=== PATIENT | male | born 1975 | race American Indian/Alaskan Native ===

== ENCOUNTER 2017-03-02 01:29 | Inpatient (IN) | payer MEDICAID, OTHER ==
[2017-03-02 01:29] VITALS: BMI 41.1
[2017-03-02 02:12] LABS: BASO # 0.1 K/uL (0.0-0.2); BASO % 0.8 % (0.0-2.0); EOS # 0.5 K/uL (0.0-0.7); EOS % 4.2 % (0.0-4.0); HEMATOCRIT 45.7 % (35.0-51.0); LYMPH # 4.4 K/uL (1.0-4.3); LYMPH % 35.6 % (20.0-40.0); MEAN CELL VOLUME 93.8 fL (80.0-94.0); MEAN CORPUSCULAR HGB CONC 33.1 g/dL (33.0-37.0); MEAN PLATELET VOLUME 7.7 fL (7.2-11.7); MONO # 0.9 K/uL (0.0-0.8); MONO % 7.5 % (0.0-10.0); NRBC % 0.1 % (0.0-2.0); RED CELL DISTRIBUTION WIDTH 12.8 % (11.5-14.5); WHITE BLOOD COUNT 12.5 K/uL (4.8-10.8)
[2017-03-02 02:28] LABS: ALB/GLOB RATIO 1.2 (1.0-2.1); ALCOHOL SERUM < 10 mg/dl (0-10); ALKALINE PHOSPHATASE 78 U/L (38-126); ALT/SGPT 39 U/L (21-72); AST/SGOT 19 U/L (17-59); BILIRUBIN,TOTAL 0.4 mg/dL (0.2-1.3); BLOOD UREA NITROGEN 9 mg/dL (9-20); CALCIUM 10.8 mg/dl (8.6-10.4); CARBON DIOXIDE 27 mmol/L (22-30); CHLORIDE 100 mmol/L (98-107); GFR AFRICAN-AMERICAN > 60; GLUCOSE,RANDOM 103 mg/dL (75-110); POTASSIUM 3.8 mmol/L (3.6-5.2); SODIUM 144 mmol/L (132-148); TOTAL PROTEIN 7.3 g/dL (6.3-8.3)
[2017-03-02 02:44] LABS: RBC URINE 3 /hpf (0-3); URINE BILIRUBIN NEGATIVE (NEGATIVE); URINE BLOOD NEGATIVE (NEGATIVE); URINE COLOR Amber (YELLOW); URINE GLUCOSE (UA) NORMAL (Normal); URINE KETONE NEGATIVE (NEGATIVE); URINE LEUKOCYTE ESTERASE 1+ Leu/uL (Negative); URINE PROTEIN 1+ mg/dL (NEGATIVE); WBC URINE 5 /hpf (0-5)
--- NOTE | 2017-03-02 02:53 | C.PDOC ---
History Of Present Illness Pt is here requesting detox from Heroin. Time Seen by Provider: 03/02/17 01:46 Chief Complaint (Nursing): Substance Abuse History Per: Patient Onset/Duration Of Symptoms: Days Current Symptoms Are (Timing): Still Present Suicide/Self Injury Attempted (Context): None Modifying Factor(s): Narcotics, Cocaine Severity: Moderate Associated Symptoms: denies: Suicidal Thoughts, Suicidal Plan Additional History Per: Prior Records Past Medical History Reviewed: Historical Data, Nursing Documentation, Vital Signs Vital Signs: Last Vital Signs Temp 98.6 F 03/02/17 01:38 Pulse 78 03/02/17 01:38 Resp 14 03/02/17 01:38 BP 112/75 03/02/17 01:38 Pulse Ox 96 03/02/17 02:53 - Medical History PMH: Bronchitis Surgical History: No Surg Hx Family History: States: Unknown Family Hx - Social History Hx Tobacco Use: Yes Hx Alcohol Use: Yes (Social) Hx Substance Use: Yes (Snorts Heroin and Cocaine) - Immunization History Hx Tetanus Toxoid Vaccination: No Hx Influenza Vaccination: No Hx Pneumococcal Vaccination: No Review Of Systems Except As Marked, All Systems Reviewed And Found Negative. Constitutional: Negative for: Fever, Weakness Cardiovascular: Negative for: Chest Pain Respiratory: Negative for: Shortness of Breath Gastrointestinal: Negative for: Vomiting, Abdominal Pain Musculoskeletal: Negative for: Neck Pain Skin: Negative for: Rash Neurological: Negative for: Weakness, Numbness, Seizures Psych: Negative for: Psychosis Physical Exam - Physical Exam Appears: Non-toxic, No Acute Distress Skin: Normal Color, Warm, Dry, No Rash Head: Atraumatic, Normacephalic Eye(s): bilateral: Normal Inspection, PERRL, EOMI Neck: Normal ROM, Supple Cardiovascular: Rhythm Regular Respiratory: Normal Breath Sounds, No Accessory Muscle Use Gastrointestinal/Abdominal: Soft, No Tenderness Extremity: Normal ROM, No Deformity Neurological/Psych: Oriented x3, Normal Speech, Normal Cognition, Normal Motor, Normal Sensation ED Course And Treatment - Laboratory Results Result Diagrams: 03/02/17 02:07 03/02/17 02:07 Lab Interpretation: No Acute Changes O2 Sat by Pulse Oximetry: 96 Pulse Ox Interpretation: Normal Progress Note: Pt is medically stable for detox admission. Disposition Counseled Patient/Family Regarding: Studies Performed, Diagnosis, Smoking Cessation - Disposition Disposition: HOSPITALIZED Disposition Time: 02:54 Condition: STABLE - Clinical Impression Clinical Impression: Severe opioid use disorder, Cocaine abuse Decision To Admit - Pt Status Changed To: Hospital Disposition Of: Inpatient - Admit Certification Admit to Inpatient:: After my assessment, the patient will require hospitalization for at least two midnights. This is because of the severity of symptoms shown, intensity of services needed, and/or the medical risk in this patient being treated as an outpatient. - InPatient: Physician Admission Certification: I certify that this patient requires 2 or more midnights of care for the following reason:: Detox. - . Bed Request Type: Detox Admitting Physician: Brenda Torres Patient Diagnosis: Severe opioid use disorder, Cocaine abuse
[2017-03-02] MEDS ORDERED: Aluminum Hydroxide/Magnesium Hydroxide Susp (30 mL) PO PRN (10:45)
--- NOTE | 2017-03-02 13:25 | PCM.PSYCH ---
Initial Psychiatric Evaluation - Initial Psychiatric Evaluation Type of Admission: Voluntary Legal Status: Capacity Chief Complaint (in patient's own words): "Not well" History of Present Illness and Precipitating Events: The patient is seen, chart reviewed and case discussed. This is a 41-year-old -[place]rist[place] male, single with 1 son who is 18 years old. 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 The patient uses 10 backs intranasal heroin for the last 20 years. He states he relapsed about a year ago. This is his first detox and he has never been to rehabilitation but goes to [facility] sometimes. He also has not done methadone or Suboxone. He also admits to using cocaine on and off for the last 20 years, mostly by smoking. He denies alcohol but smokes 1 pack per day cigarettes and takes 6 mg Xanax a day, last use was about a week ago. He denies other drugs. He denies withdrawals or DTs. No psych symptoms elicited. Past psych history: Denies Medical history: There in shoulder and he is overweight. Current Medications: Active Medications Generic Name Dose Route Start Last Admin Trade Name Freq PRN Reason Stop Dose Admin Al Hydrox/Mg Hydrox/Simethicone 30 ml 03/02/17 10:45 Maalox 30 Ml PO TID PRN Indigestion / Heartburn Clonidine HCl 0.1 mg 03/02/17 10:45 Catapres PO Q8 PRN COWS Score More or Equal to 5 Diphenhydramine HCl 50 mg 03/02/17 04:33 03/02/17 04:50 Benadryl PO 50 mg Q8 PRN Administration Allergy symptoms Gabapentin 300 mg 03/02/17 14:00 Neurontin PO TID SONU Ibuprofen 600 mg 03/02/17 10:43 Motrin Tab PO Q6H PRN Pain, moderate (4-7) Loperamide HCl 2 mg 03/02/17 10:45 Imodium PO Q8 PRN Diarrhea Lorazepam 1 mg 03/02/17 04:33 03/02/17 04:50 Ativan PO 1 mg Q8H PRN Administration Severe anxiety Nicotine 1 patch 03/02/17 10:45 03/02/17 10:59 Nicoderm Cq TD 1 patch DAILY SONU Administration Ondansetron HCl 4 mg 03/02/17 10:45 Zofran Tab PO Q8 PRN Nausea/Vomiting Trazodone HCl 100 mg 03/02/17 10:43 Desyrel PO HS PRN Insomnia Past Psychiatric History - Past Psychiatric History Previous Treatment History: None Pertinent Medical Hx (Current Medical&Sleep Prob, Allergies): Allergies Allergy/AdvReac Type Severity Reaction Status Date / Time No Known Allergies Allergy Verified 03/02/17 01:42 Diazepam [Valium] 2 mg PO BID #6 tab 04/02/16 Ibuprofen [Motrin Tab] 600 mg PO Q6 #14 tab 04/02/16 traMADol [Ultram] 50 mg PO TID #6 tab 04/02/16 Review of Systems - Psychiatric Psychiatric: Abnormal Sleep Pattern, Anxiety, Irritability. absent: Depression , Hallucinations, Homicidal Ideation, Suicidal Ideation Mental Status Examination - Personal Presentation Personal Presentation: Looks stated age - Affect Affect: Constricted - Motor Activity Motor Activity: Calm - Reliability in Providing Information Reliability in Providing Information: Good - Speech Speech: Organized - Mood Mood: Anxious - Formal Thought Process Formal Thought Process: No Impairment - Cognitive Functions Orientation: Person, Place, Situation, Time Sensorium: Alert Attention/Concentration: Attentive Estimate of Intelligence: Average Judgement: Intact, as evidence by: Insight regarding need for hospitalization Memory: Recent intact, as evidence by: Ability to recall events of the day, Remote intact, as evidenced by: Abilit to recall sig. life events - Risk Risk: Withdrawal, Diminished functioning - Strength & Assets Inventory Strength & Assets Inventory: Cooperative - Limitations Limitations: Living alone, Other (unemployed) DSM 5 DX - DSM 5 DSM 5 Diagnosis: Opioid withdrawal Opioid use disorder, severe Cocaine use disorder, severe Sedative, hypnotic or anxiolytic use disorder, moderate Tobacco use disorder, severe - Recommended/Plan of Treatment Treatment Recommendations and Plan of Treatment: Opioids: Subutex detox As needed medications Gabapentin for augmentation Attend groups and activities Supportive therapy and psychoeducation [place] for abstinence CBT for relapse prevention Encourage MAT Refer to rehab or IOP Attend self-help groups as well Others: Patch [place] Monitor wdw sxs 34 min Projected ELOS: 4-5 days Prognosis: Good with treatment - Smoking Cessation Smoking Cessation Initiated: Yes
[2017-03-02] MEDS ORDERED: Buprenorphine Hydrochloride 2 mg SL ONE ×2 (14:34→15:35)
[2017-03-03] MEDS: Buprenorphine Hydrochloride 2 mg SL SCH ×2 (10:25→10:32)
--- NOTE | 2017-03-03 11:23 | PCM.PYCHPN ---
Psychiatric Progress Note - Psychiatric Progress Note Patient seen today, length of contact: 16 min Patient Chief Complaint: "Better" Problems Identified/Issues Discussed: The pt is seen, chart reviewed, case discussed with staff. Support given, CBT and NE used briefly No new symptoms reported, improving slowly and needs more time No SEs from medications, risks discussed. After care discussed Medication Change: Yes (detox changes daily) Medical Record Reviewed: Yes Mental Status Examination - Cognitive Function Orientation: Person, Place, Situation, Time Memory: Intact Attention: WNL Concentration: WNL Association: WNL Fund of Knowledge: WNL - Mood Mood: Anxious - Affect Affect: Constricted - Speech Speech: Appropriate - Formal Thought Process Formal Thought Process: No Impairment - Suicidal Ideation Suicidal Ideation: No - Homicidal Ideation Homicidal Ideation: No Goal/Treatment Plan - Goal/Treatment Plan Need for Continued Stay: Discharge may exacerbated symptoms, Severe functional impairment Progress Toward Problem(s) and Goals/Treatment Plan: Opioids: Subutex detox As needed medications Gabapentin for augmentation Attend groups and activities Supportive therapy and psychoeducation [place] for abstinence CBT for relapse prevention Encourage MAT Refer to rehab or IOP Attend self-help groups as well Others: Patch [place] Monitor wdw sxs Estimated Date of D/C: 03/06/17 - Smoking Cessation Smoking Cessation Initiated: Yes
[2017-03-04] MEDS: Buprenorphine Hydrochloride 2 mg SL SCH ×2 (10:01→10:15)
--- NOTE | 2017-03-04 10:48 | PCM.PYCHPN ---
Psychiatric Progress Note - Psychiatric Progress Note Patient seen today, length of contact: 15 min Patient Chief Complaint: "So so" Problems Identified/Issues Discussed: The pt is seen, chart reviewed, case discussed with staff. Support given, CBT and [place] used briefly No new symptoms reported, improving slowly and needs more time No SEs from medications, risks discussed. After care discussed - [facility] Medication Change: Yes (detox changes daily) Medical Record Reviewed: Yes Mental Status Examination - Cognitive Function Orientation: Person, Place, Situation, Time Memory: Intact Attention: WNL Concentration: WNL Association: WNL Fund of Knowledge: WNL - Mood Mood: Anxious - Affect Affect: Constricted - Speech Speech: Appropriate - Formal Thought Process Formal Thought Process: No Impairment - Suicidal Ideation Suicidal Ideation: No - Homicidal Ideation Homicidal Ideation: No Goal/Treatment Plan - Goal/Treatment Plan Need for Continued Stay: Discharge may exacerbated symptoms, Severe functional impairment Progress Toward Problem(s) and Goals/Treatment Plan: Opioids: Subutex detox As needed medications Gabapentin for augmentation Attend groups and activities Supportive therapy and psychoeducation [place] for abstinence CBT for relapse prevention Encourage MAT Refer to rehab or IOP Attend self-help groups as well Others: Patch [place] Monitor wdw sxs Estimated Date of D/C: 03/06/17
[2017-03-04] MEDS: Benzocaine/Menthol 20%-0.5% Topical Spray (60 ml) TOP PRN ×2 (17:23→21:22)
[2017-03-05] MEDS: Buprenorphine Hydrochloride 2 mg SL SCH (10:05)
--- NOTE | 2017-03-05 11:48 | PCM.PYCHPN ---
Psychiatric Progress Note - Psychiatric Progress Note Patient seen today, length of contact: 16 min Patient Chief Complaint: "OK" Problems Identified/Issues Discussed: The pt is seen, chart reviewed, case discussed with staff. The pt is compliant with medications and reports no side-effects. Symptoms are improving but needs more time to stabilize. After care discussed, support and psychoeducation given. He will attend IOP at [facility] Medication Change: Yes (detox changes daily) Medical Record Reviewed: Yes Mental Status Examination - Cognitive Function Orientation: Person, Place, Situation, Time Memory: Intact Attention: WNL Concentration: WNL Association: WNL Fund of Knowledge: WNL - Mood Mood: Anxious - Affect Affect: Constricted - Speech Speech: Appropriate - Formal Thought Process Formal Thought Process: No Impairment - Suicidal Ideation Suicidal Ideation: No - Homicidal Ideation Homicidal Ideation: No Goal/Treatment Plan - Goal/Treatment Plan Need for Continued Stay: Discharge may exacerbated symptoms, Severe functional impairment Progress Toward Problem(s) and Goals/Treatment Plan: Opioids: Subutex detox As needed medications Gabapentin for augmentation Attend groups and activities Supportive therapy and psychoeducation [place] for abstinence CBT for relapse prevention Encourage MAT Refer to rehab or IOP Attend self-help groups as well Others: Patch [place] Monitor elizabethw sxs Estimated Date of D/C: 03/06/17
[2017-03-06 06:41] VITALS: O2SAT 99
[2017-03-06 09:02] VITALS: BP 129/86; PULSE 86; RESP 18; TEMP 98
--- NOTE | 2017-03-06 09:20 | PCM.PYCHDC ---
Mental Status Examination - Mental Status Examination Orientation: Person, Place, Situation, Time Memory: Intact Mood: Anxious Affect: Constricted Speech: Appropriate Attention: WNL Concentration: WNL Association: WNL Fund of Knowledge: WNL Formal Thought Process: No Impairment Suicidal Ideation: No Current Homicidal Ideation?: No Discharge Summary - Discharge Note Reason for Hospitalization: Opioid detox Consultations:: List each consultation separately and include: 1. Reason for request. 2. Findings. 3. Follow-up Summary of Hospital Course include:: 1. Description of specific treatment plan utilized for patients during their course of treatmen. 2. Summarize the time- course for resolution of acute symptoms and/or regressed behaviors. 3. Describe issues identified and worked on during hospitalization. 4. Describe medication utilized. 5. Describe medical problems identified and treated. 6. Reassessment of suicide risk Summary of Hospital Course: The patient was admitted and started on treatment with psychotherapy, support, psychoeducation and medications. [place] and CBT used. The patient attended groups and activities, as well as milieu therapy. All the risks and benefits of medications are discussed and the patient understood and agreed. The patient improved with the treatments provided. After care discussed with the patient. He is referred to [facility] via [facility]. - Final Diagnosis (DSM 5) Condition upon Discharge: STABLE DSM 5: Opioid withdrawal Opioid use disorder, severe Cocaine use disorder, severe Sedative, hypnotic or anxiolytic use disorder, moderate Tobacco use disorder, severe Disposition: HOME/ ROUTINE Follow-up Treatment Plan: Continue below medications after discharge. Follow after care plan as discussed. Use relapse prevention skills. Return to ED or call 911 if suicidal, homicidal or symptoms relapse. Stay away from stress, alcohol and drugs. See primary doctor once a year. Prescriptions/Medication Reconciliation: Gabapentin [Neurontin] 300 mg PO TID #90 cap traZODone [Desyrel] 100 mg PO HS PRN #30 tab PRN Reason: Insomnia
[2017-03-06] MEDS: Buprenorphine Hydrochloride 2 mg SL SCH (09:59)
== END 2017-03-06 11:00 | disposition home or self-care (01) | DRG 895 ==
LOC: C.ER 01:29 → C.7D 02:57
PROVIDERS: ADMIT Psychiatry & Neurology Psychiatry; ATTEND Psychiatry & Neurology Psychiatry
PROC: HZ2ZZZZ Detoxification Services for Substance Abuse Treatment (ICD-10-PCS; principal; 2017-03-02)
PROC: HZ32ZZZ Individual Counseling for Substance Abuse Treatment, Cognitive-Behavioral (ICD-10-PCS; 2017-03-02)
PROC: HZ36ZZZ Individual Counseling for Substance Abuse Treatment, Psychoeducation (ICD-10-PCS; 2017-03-02)
PROC: HZ89ZZZ Medication Management for Substance Abuse Treatment, Other Replacement Medication (ICD-10-PCS; 2017-03-02)
DX: F11.23 Opioid dependence with withdrawal (principal); F14.10 Cocaine abuse, uncomplicated; F17.200 Nicotine dependence, unspecified, uncomplicated; F13.90 Sedative, hypnotic, or anxiolytic use, unspecified, uncomplicated

== ENCOUNTER 2017-12-29 16:53 | Inpatient (IN) | payer OTHER, SELFPAY ==
[2017-12-29 16:54] VITALS: BMI 29.7
--- NOTE | 2017-12-29 17:34 | RAD ---
PROCEDURE: CHEST RADIOGRAPH, 1 VIEW HISTORY: SOB COMPARISON: None available. FINDINGS: LUNGS: Clear. PLEURA: No pneumothorax or pleural fluid seen. CARDIOVASCULAR: Normal. OSSEOUS STRUCTURES: No significant abnormalities. VISUALIZED UPPER ABDOMEN: Normal. OTHER FINDINGS: None. IMPRESSION: No active disease.
--- NOTE | 2017-12-29 17:40 | C.PDOC ---
History Of Present Illness Patient brought to ED by family for evaluation of bizarre behavior, was found at home talking to himself. Family ( and sister at bedside) reports a history of substance abuse, specifically heroin snorting. They also think hehas been abusing cocaine and possibly smoking PCP. Family denies psychiatric history. PMhx of asthma, LUCA. PMD Dr. Castillo Time Seen by Provider: 12/29/17 17:02 Chief Complaint (Nursing): Substance Abuse History Per: Family History/Exam Limitations: clinical condition (under influence) Modifying Factor(s): Narcotics Severity: Moderate Associated Symptoms: Other (bizarre behavior) Past Medical History Reviewed: Historical Data, Nursing Documentation, Vital Signs Vital Signs: Last Vital Signs Temp 99.4 F 12/29/17 19:40 Pulse 112 H 12/29/17 19:53 Resp 22 12/29/17 19:53 BP 170/104 H 12/29/17 19:53 Pulse Ox 100 12/29/17 19:53 - Medical History PMH: Asthma, Bronchitis, Sleep Apnea (ON CPAP) - [facility] Procedures DETOXIFICATION SERVICES FOR SUBSTANCE ABUSE TREATMENT (03/02/17) INDIV OPTIMIZATION ANALYST FOR SUBSTANCE ABUSE TREATMENT, PSYCHOEDUCATION (03/02/17) INDIV OPTIMIZATION ANALYST FOR SUBSTANCE ABUSE, COGNITIVE BEHAVIORAL (03/02/17) MEDS MGMT FOR SUBSTANCE ABUSE TREATMENT, OTH REPL MED (03/02/17) Family History: States: No Known Family Hx - Social History Hx Tobacco Use: Yes Hx Alcohol Use: Yes Hx Substance Use: Yes - Immunization History Hx Tetanus Toxoid Vaccination: No Hx Influenza Vaccination: No Hx Pneumococcal Vaccination: No Review Of Systems Constitutional: Negative for: Fever Cardiovascular: Negative for: Chest Pain, Palpitations Respiratory: Negative for: Shortness of Breath Gastrointestinal: Negative for: Nausea, Vomiting, Abdominal Pain Neurological: Negative for: Headache, Dizziness Psych: Negative for: Anxiety, Depression, Suicidal ideation Physical Exam - Physical Exam Appears: Well, Non-toxic, Other (anxious and bizarre appearing) Skin: Normal Color, Warm, Dry Eye(s): bilateral: PERRL, EOMI, Other (approx 3-4 mm B/L and reactive) Oral Mucosa: Moist Cardiovascular: Rhythm Regular (tachycardic ) Respiratory: Normal Breath Sounds, No Rales, No Rhonchi, No Wheezing Gastrointestinal/Abdominal: Normal Exam, Bowel Sounds, Soft, No Tenderness, Other (obese) Extremity: Normal ROM Extremity: Bilateral: Atraumatic, Normal Color And Temperature, Normal ROM ED Course And Treatment - Laboratory Results Result Diagrams: 12/29/17 18:01 12/29/17 18:01 ECG: Interpreted By Me, Viewed By Me (sinus tachycardia 109 bpm, normal axis, no acute ST/T wave changes) ECG Interpretation: Abnormal (tachycardic) O2 Sat by Pulse Oximetry: 100 (RA) Pulse Ox Interpretation: Normal Progress Note: Blood work, EKG, UA, UDS ordered and reviewed. 6:30PM- Patien hypertensive and trembling, mildly tachycardic - likely due to substance abuse. Family suspects cocaine vs PCP. Will give Ativan 2mg IV. Disposition - Disposition Forms: [employer] (Chinese)
[2017-12-29] MEDS ORDERED: Sodium Chloride 0.9% 1,000 ML IV ONE (17:51)
[2017-12-29 18:04] LABS: BASO # 0.1 K/uL (0.0-0.2); BASO % 0.8 % (0.0-2.0); EOS % 0.2 % (0.0-4.0); HEMOGLOBIN 15.5 g/dL (12.0-18.0); LYMPH # 2.1 K/uL (1.0-4.3); LYMPH % 15.7 % (20.0-40.0); MEAN CELL VOLUME 93.6 fL (80.0-94.0); MEAN CORPUSCULAR HEMOGLOBIN 31.6 pg (27.0-31.0); MEAN CORPUSCULAR HGB CONC 33.8 g/dL (33.0-37.0); MEAN PLATELET VOLUME 7.4 fL (7.2-11.7); MONO # 1.1 K/uL (0.0-0.8); MONO % 8.3 % (0.0-10.0); RBC 4.9 Mil/uL (4.40-5.90); RED CELL DISTRIBUTION WIDTH 13.1 % (11.5-14.5); WHITE BLOOD COUNT 13.4 K/uL (4.8-10.8)
[2017-12-29 18:16] LABS: CALCIUM 11.2 mg/dl (8.6-10.4); GFR AFRICAN-AMERICAN > 60; GFR NON-AFRICAN AMERICAN > 60
[2017-12-29 18:20] LABS: ALB/GLOB RATIO 1.3 (1.0-2.1); ALBUMIN 5.2 g/dL (3.5-5.0); ALT/SGPT 45 U/L (21-72); AST/SGOT 51 U/L (17-59); BLOOD UREA NITROGEN 8 mg/dL (9-20)
[2017-12-29 18:28] LABS: ACETAMINOPHEN < 10.0 ug/mL (10.0-30.0); SALICYLATE < 1.0 mg/dL 1
[2017-12-29 18:55] LABS: SQUAMOUS EPITHIAL < 1 /hpf (0-5); URINE BACTERIA RARE (<OCC); URINE BILIRUBIN NEGATIVE (NEGATIVE); URINE BLOOD NEGATIVE (NEGATIVE); URINE CLARITY Clear (Clear); URINE COLOR Yellow (YELLOW); URINE GLUCOSE (UA) NORMAL (Normal); URINE LEUKOCYTE ESTERASE NEG Leu/uL (Negative); URINE PROTEIN 1+ mg/dL (NEGATIVE); URINE UROBILINOGEN NORMAL mg/dL (0.2-1.0)
[2017-12-29 19:05] LABS: BARBITURATES, UR NEGATIVE (NEGATIVE); BENZODIAZEPINES, UR NEGATIVE (NEGATIVE); OPIATES, UR NEGATIVE (NEGATIVE); PHENCYCLIDINE, UR NEGATIVE (NEGATIVE)
[2017-12-29 20:07] LABS: VENOUS BLOOD GAS BASE EXCESS -0.8 mmol/L (0.0-2.0); VENOUS BLOOD GAS PCO2 37 mmHg (40-60); VENOUS BLOOD GAS PO2 43 mm/Hg (30-55); VENOUS BLOOD PH 7.41 (7.32-7.43)
--- NOTE | 2017-12-29 21:00 | CP.PCM.PCO ---
Physician Communication Note - Physician Communication Note Physician Communication Note: Pt will be seen and evaluated by Psych C/L team tomorrow
[2017-12-29] MEDS ORDERED: Folic Acid 1 MG, Thiamine 100 MG, Multivitamin (MVI) 10 ML in Dextrose 5% In Water 1,00... IV SCH (23:30)
[2017-12-29] MEDS ORDERED: Folic Acid 1 MG, Thiamine 100 MG, Multivitamin (MVI) 10 ML in Sodium Chloride 0.9% 1,00... IV SCH (23:45)
--- NOTE | 2017-12-30 08:17 | CT ---
PROCEDURE: CT HEAD WITHOUT CONTRAST. HISTORY: Altered mental status COMPARISON: None available. TECHNIQUE: Axial computed tomography images were obtained through the head/brain without intravenous contrast. This CT exam was performed using one or more of the following dose reduction techniques: Automated exposure control, adjustment of the mA and/or kV according to patient size, and/or use of iterative reconstruction technique. FINDINGS: HEMORRHAGE: No intracranial hemorrhage. BRAIN: No mass effect or edema. No atrophy or chronic microvascular ischemic changes. VENTRICLES: Unremarkable. No hydrocephalus. CALVARIUM: Unremarkable. PARANASAL SINUSES: Mild mucosal thickening of the ethmoid air cells and frontal sinus. MASTOID AIR CELLS: Unremarkable as visualized. No inflammatory changes. OTHER FINDINGS: None. IMPRESSION: No acute intracranial abnormality. If symptoms persists, consider MRI. These findings were preliminarily reported at 9:32 p.m. on 12/29/[address] Ben Snider from [facility].
--- NOTE | 2017-12-30 10:01 | PCM.PSYCH ---
Initial Psychiatric Evaluation - Initial Psychiatric Evaluation Type of Admission: Voluntary Legal Status: Capacity Chief Complaint (in patient's own words): I took as much as I could.' History of Present Illness and Precipitating Events: Patient is a 42 year old male, with a PMH of chronic heroin and cocaine abuse over more than 10 years. He was brought to the ED yesterday by his . Spoke to Nida on the phone who stated that her was acting strangely yesterday and started stripping in front of her. His stated that he was talking to himself and throwing things around the house when she decided to bring him to the ER. She searched his clothing and found drugs but she was not able to identify the type of drug. The also identified that the patient was previously admitted to [facility] [place] and he was diagnosed with schizophrenia. The also stated that the patient only acts strangely when he is on drugs which she says he has recently starting abusing again. The pointed out that the patient also talks to himself at nighttime as well. She has known the patient for three years. The patient was seen at bedside and he admitted to using heroin and cocaine yesterday. He does not remember the quantity but states "I took as much as I could." He admitted to many years of drug abuse and a short period of sobriety. His preferred method of taking the drugs is smoking and inhaling them. He states that he has previously been in a psychiatric unit but does not remember where and when he was diagnosed with paranoid schizophrenia. He was prescribed haldol and congentin however he has been off medication for an unspecified amount of time. The patient stated that he has previously been admitted to the psych unit at [facility] for detox. He admitted to hearing voices but no visual hallucinations are present. While speaking the patient stares at you as though he is internally preoccupied before answering questions. He denies suicidal and homicidal ideations. Urine toxicology was negative for heroin and cocaine. PMH Asthma Current Medications: Active Medications Generic Name Dose Route Start Last Admin Trade Name Freq PRN Reason Stop Dose Admin Clonidine HCl 0.1 mg 12/29/17 23:17 Catapres PO Q6 PRN Systolic Blood Pressure Folic Acid 1 mg/ Thiamine HCl 1,011.2 mls @ 100 mls/hr 12/29/17 23:45 00:20 100 mg/ Multivitamins/Vitamin IV 100 mls/hr C 10 ml/ Sodium Chloride Q24H SONU Administration Past Psychiatric History - Past Psychiatric History Previous Treatment History: Inpatient At [facility]: [facility] Nature of Treatment: Detox Pertinent Medical Hx (Current Medical&Sleep Prob, Allergies): Allergies Allergy/AdvReac Type Severity Reaction Status Date / Time No Known Allergies Allergy Verified 12/29/17 17:06 traMADol [Ultram] 50 mg PO TID #6 tab 04/02/16 Review of Systems - Review of Systems All systems: reviewed and no additional remarkable complaints except - Psychiatric Psychiatric: Auditory Hallucinations Mental Status Examination - Personal Presentation Personal Presentation: Obese - Affect Affect: Constricted - Motor Activity Motor Activity: Calm - Reliability in Providing Information Reliability in Providing Information: Fair - Speech Speech: Organized - Mood Mood: Depressed, Anxious - Formal Thought Process Formal Thought Process: Hallucinations Additional comments: internally preoccupied - Hallucinations/Delusions Hallucinations: Auditory - Obsessions/Compulsions Obsessions: No Compulsions: No - Cognitive Functions Orientation: Person, Place, Situation, Time Sensorium: Alert Attention/Concentration: Attentive Abstract Thinking: [place] Estimate of Intelligence: Below average Judgement: Imparied, as evidence by: Poor judgement, Imparied, as evidence by: Lack of insight into illness - Risk Risk: Diminished functioning - Strength & Assets Inventory Strength & Assets Inventory: Family support DSM 5 DX - DSM 5 DSM 5 Diagnosis: Cocaine use disorder severe Opioid use disorder severe Paranoid schizophrenia - Recommended/Plan of Treatment Treatment Recommendations and Plan of Treatment: Cocaine use disorder severe Opioid use disorder severe Paranoid schizophrenia Supportive therapy Start on haldol Psychoeduation and support daily Encourage compliance with meds and after care As needed medications Attend groups and activities CBT for relapse prevention
[2017-12-30 16:14] VITALS: BP 152/86; PULSE 99; RESP 21; TEMP 98.8; O2SAT 98
--- NOTE | 2017-12-31 00:28 | CON ---
DATE: 12/30/2017 CARDIOLOGY CONSULTATION REASON FOR CONSULTATION: History of drug abuse and sinus tachycardia. HISTORY OF PRESENT ILLNESS: The patient is a 42 years old morbidly obese male who was admitted because of bizarre behavior. The patient denies any chest pain and is unaware of any history of heart attack in the past. The patient's EKG revealed sinus tachycardia at rate of 109. SOCIAL HISTORY: The patient is a smoker and EtOH abuser. REVIEW OF SYSTEMS: The patient denies any fever or chills. Denies any nausea or vomiting. MEDICATIONS: Clonidine 0.4 mg every 6 hours, multivitamin infusion. PHYSICAL EXAMINATION: GENERAL: The patient is a middle-aged male who does not appear to be in acute distress. VITAL SIGNS: Blood pressure 122/82, heart rate 100, temperature 98.2, and respirations 20. HEENT: Normocephalic. CHEST: Clear. HEART: S1, S2 are regular. ABDOMEN: Soft. EXTREMITIES: No edema. No calf tenderness. LABORATORY DATA: CBC: WBC 15.2, hemoglobin 15.5, hematocrit 45.8, and platelet count 464,000. SMA-7: Sodium 140, potassium 4.7, chloride 101, CO2 of 20, glucose 169, BUN 8, creatinine 0.7. TSH level is 1.3 within normal limit. Urine drug screen is negative and alcohol level less than 10. EKG: Sinus tachycardiac at rate of 109. CT scan without contrast: No acute intracranial abnormality. Chest x-ray was unremarkable. ASSESSMENT: 1. Sinus tachycardia. 2. History of drug abuse in the past. The patient's urine drug screen is negative with alcohol level below than 10. RECOMMENDATIONS: Continue current clonidine and multivitamin infusion. Obtain PT, PTT, INR as well as serum D-dimer. Obtain a portable echocardiographic study. Consider psych evaluation. Kilo Freitas MD
[2017-12-31] MEDS ORDERED: Folic Acid 1 MG, Thiamine 100 MG, Multivitamin (MVI) 10 ML in Sodium Chloride 0.9% 1,00... IV SCH ×2 (00:30)
== END 2017-12-30 17:45 | disposition left against medical advice (07) | DRG 894 ==
LOC: C.ER 16:53 → C.9E 19:00 → C.9I 12-30 04:29
PROVIDERS: ADMIT Specialist; ATTEND Specialist
DX: F14.20 Cocaine dependence, uncomplicated (principal); F20.0 Paranoid schizophrenia; F11.20 Opioid dependence, uncomplicated; G47.33 Obstructive sleep apnea (adult) (pediatric); J45.909 Unspecified asthma, uncomplicated; F10.10 Alcohol abuse, uncomplicated; E66.01 Morbid (severe) obesity due to excess calories; R00.0 Tachycardia, unspecified; F17.200 Nicotine dependence, unspecified, uncomplicated; Y90.0 Blood alcohol level of less than 20 mg/100 ml

== ENCOUNTER 2018-06-01 19:44 | Inpatient (IN) | payer MEDICAID, OTHER, SELFPAY ==
[2018-06-01 19:44] VITALS: BMI 29.7
--- NOTE | 2018-06-01 20:24 | C.PDOC ---
History Of Present Illness 42 y/o male presents to the ED requesting heroin detox. Last used just prior to arrival. On arrival to the ED patient appears drowsy, but arousable. Denies any suicidal or homicidal ideation. No medical complaints offered at this time. Time Seen by Provider: 06/01/18 20:23 Chief Complaint (Nursing): Substance Abuse History Per: Patient History/Exam Limitations: no limitations Onset/Duration Of Symptoms: Days Current Symptoms Are (Timing): Still Present Suicide/Self Injury Attempted (Context): None Modifying Factor(s): Other (Heroin) Severity: None Pain Scale Rating Of: 0 Associated Symptoms: denies: Suicidal Thoughts, Suicidal Plan Involuntary Hold By: None Additional History Per: Patient Past Medical History Reviewed: Historical Data, Nursing Documentation, Vital Signs Vital Signs: Last Vital Signs Temp 97.6 F 06/01/18 19:48 Pulse 95 H 06/01/18 19:48 Resp 24 06/01/18 19:48 BP 133/88 06/01/18 19:48 Pulse Ox 93 L 06/01/18 19:48 - Medical History PMH: Asthma, Bronchitis, Sleep Apnea (ON CPAP) Other Surgeries: Right rotator cuff surgery - [facility] DETOXIFICATION SERVICES FOR SUBSTANCE ABUSE TREATMENT (03/02/17) INDIV POWER NUT RUNNER OPERATOR FOR SUBSTANCE ABUSE TREATMENT, PSYCHOEDUCATION (03/02/17) INDIV POWER NUT RUNNER OPERATOR FOR SUBSTANCE ABUSE, COGNITIVE BEHAVIORAL (03/02/17) MEDS MGMT FOR SUBSTANCE ABUSE TREATMENT, OTH REPL MED (03/02/17) Family History: States: No Known Family Hx - Social History Hx Tobacco Use: Yes Hx Alcohol Use: Yes Hx Substance Use: Yes - Immunization History Hx Tetanus Toxoid Vaccination: No Hx Influenza Vaccination: No Hx Pneumococcal Vaccination: No Review Of Systems Constitutional: Negative for: Fever, Chills Gastrointestinal: Negative for: Nausea, Vomiting Musculoskeletal: Negative for: Other (tremors) Neurological: Negative for: Weakness, Numbness Psych: Positive for: Other (Substance abuse). Negative for: Suicidal ideation Physical Exam - Physical Exam Appears: Non-toxic, No Acute Distress Skin: Warm, Dry Head: Normacephalic Eye(s): bilateral: Normal Inspection Oral Mucosa: Moist Neck: Trachea Midline, Supple Chest: Symmetrical Cardiovascular: Rhythm Regular Respiratory: No Rales, No Rhonchi, No Wheezing Gastrointestinal/Abdominal: Soft, No Tenderness, No Distention Back: Normal Inspection Extremity: Normal ROM Extremity: Bilateral: Atraumatic, Normal Color And Temperature Pulses: Left Dorsalis Pedis: Normal, Right Dorsalis Pedis: Normal Neurological/Psych: Oriented x3 Gait: Steady ED Course And Treatment - Laboratory Results Result Diagrams: 06/01/18 21:35 06/01/18 21:35 O2 Sat by Pulse Oximetry: 93 (on room air) Pulse Ox Interpretation: Normal Progress Note: Labs ordered for medical clearance. Discussed with casing worker. Disposition Discussed With Dr.: Lance Padilla Comment: accepted the pt on his service and took over the care at 10:10 PM Doctor Will See Patient In The: Hospital Counseled Patient/Family Regarding: Studies Performed, Diagnosis, Need For Followup - Disposition Disposition: HOSPITALIZED Disposition Time: 20:24 Condition: FAIR Forms: [facility] (Romans[facility]) - Clinical Impression Clinical Impression: Drug abuse, Drug dependence - Scribe Statement The provider has reviewed the documentation as recorded by the Betsey Zapata Provider Attestation: All medical record entries made by the Betsey were at my direction and personally dictated by me. I have reviewed the chart and agree that the record accurately reflects my personal performance of the history, physical exam, medical decision making, and the department course for this patient. I have also personally directed, reviewed, and agree with the discharge instructions and disposition. Decision To Admit - Pt Status Changed To: Hospital Disposition Of: Inpatient - Admit Certification Admit to Inpatient:: After my assessment, the patient will require hospitalization for at least two midnights. This is because of the severity of symptoms shown, intensity of services needed, and/or the medical risk in this patient being treated as an outpatient. - InPatient: Physician Admission Certification: I certify that this patient requires 2 or more midnights of care for the following reason:: After my assessment, the patient will require hospitalization for at least two midnights. This is because of the severity of symptoms shown, intensity of services needed, and/or the medical risk in this patient being treated as an outpatient. - . Bed Request Type: Detox Admitting Physician: Lance Padilla Patient Diagnosis: Drug abuse, Drug dependence
[2018-06-01 21:25] LABS: SQUAMOUS EPITHIAL 1 /hpf (0-5); URINE BILIRUBIN NEGATIVE (NEGATIVE); URINE BLOOD NEGATIVE (NEGATIVE); URINE CLARITY Clear (Clear); URINE COLOR Yellow (YELLOW); URINE GLUCOSE (UA) NORMAL (Normal); URINE LEUKOCYTE ESTERASE NEG Leu/uL (Negative); URINE PROTEIN NEGATIVE (NEGATIVE)
[2018-06-01 21:30] LABS: BARBITURATES, UR NEGATIVE (NEGATIVE); PHENCYCLIDINE, UR NEGATIVE (NEGATIVE)
[2018-06-01 21:36] LABS: BENZODIAZEPINES, UR POSITIVE (NEGATIVE); OPIATES, UR POSITIVE (NEGATIVE)
[2018-06-01 21:41] LABS: BASO # 0.1 K/uL (0.0-0.2); BASO % 0.8 % (0.0-2.0); EOS # 0.6 K/uL (0.0-0.7); EOS % 6.3 % (0.0-4.0); LYMPH # 3.6 K/uL (1.0-4.3); LYMPH % 37.4 % (20.0-40.0); MEAN CELL VOLUME 92.3 fL (80.0-94.0); MEAN CORPUSCULAR HEMOGLOBIN 31.2 pg (27.0-31.0); MEAN CORPUSCULAR HGB CONC 33.8 g/dL (33.0-37.0); MEAN PLATELET VOLUME 7.6 fL (7.2-11.7); MONO # 0.7 K/uL (0.0-0.8); MONO % 7.2 % (0.0-10.0); NEUT # 4.6 K/uL (1.8-7.0); NEUT % 48.3 % (50.0-75.0); NRBC % 0.1 % (0.0-2.0); RBC 4.31 Mil/uL (4.40-5.90); RED CELL DISTRIBUTION WIDTH 13.3 % (11.5-14.5); WHITE BLOOD COUNT 9.6 K/uL (4.8-10.8)
[2018-06-01 21:42] LABS: HEMOGLOBIN 13.4 g/dL (12.0-18.0)
[2018-06-01 21:58] LABS: ALB/GLOB RATIO 1.3 (1.0-2.1); ALBUMIN 4.1 g/dL (3.5-5.0); ALT/SGPT 27 U/L (21-72); AST/SGOT 22 U/L (17-59); BLOOD UREA NITROGEN 6 mg/dL (9-20); CALCIUM 9.7 mg/dl (8.6-10.4); GFR NON-AFRICAN AMERICAN > 60
--- NOTE | 2018-06-01 22:24 | PCM.BM ---
<Farrukh Kessler - Last Filed: 06/01/18 22:22> Treatment Plan Problems - Problems identified on initial assessmt potential for opiate withdrawal Date Initiated: 06/01/18 Time Initiated: 22:22 Status: Active Treatment assets and liabiliti Patient Assests: cooperative, cognitively intact Patient Liabilities: substance abuse, medical problems - Milieu Protocol Maintain good personal hygiene: daily Encourage regular showers, daily Remind patient to perform daily oral care, daily Assist patient to perform ADL's Conduct patient checks and document Observation sheet: Q15 minutes Maintain personal safety: every shift Educate patient to report safety concerns to staff, every shift Monitor environment for contraband/sharps Medication safety: Monitor for expected outcome, potential side effects: every shift, Assess barriers to learning: every shift, Assess readiness for medication education: every shift <Viviana Arnold - Last Filed: 06/02/18 11:14> Family Contact Family involvement: Famliy/SO not involved - Goals for Treatment Patient goals for treatment: Complete detox and apply for short term rehab. Discharge/Continuing Care - Education Needs Education Needs: Patient Medication, Patient Diagnosis/Disease Process, Patient Coping Skills, Patient Anger Management skills, Patient Placement options, Patient Community resources - Discharge Discharge Criteria: No longer exhibiting s/s of withdrawal, Reduction of target symptoms Discharge to:: Substance Abuse Rehab - Treatment Team Participation Patient/Family/SO Statement: 06/02/18 11:13 "I wanna try to get in to [facility]..." Discussed with Family/SO: No Was Patient/Family/SO present at Treatment Team Meeting: Yes
--- NOTE | 2018-06-02 08:16 | PCM.PSYCH ---
Initial Psychiatric Evaluation - Initial Psychiatric Evaluation Type of Admission: Voluntary Legal Status: Capacity Chief Complaint (in patient's own words): "I want to detox from heroin" History of Present Illness and Precipitating Events: Patient seen, chart reviewed, case discussed Patient is a 42-year-old single, unemployed -Tongan male with a 19-year-old child who lives at home with a friend. 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 The patient started using heroin at the age of 18, sniffing 10 bags per day, with his last use yesterday at 3 pm. The patient states that he is prescribed Xanax as needed, and takes two 1 mg pills per day. The patient is a social drinker, drinking 2 glasses of wine about once a month. The patient denies cocaine, marijuana or other drug use but smokes 1.5 packs per day for the last 26 years. The patient has been to detox once in February 2017 but never been to rehab. The patients longest sobriety was for one year between [id number]. The patient denies any family history of alcohol or drug abuse. Past Psych History: Generalized Anxiety Disorder, still anxious Past Medical History: Sleep apnea, he looks cognitively impaired likely b/c of this; obesity Family Psych History: denies Current Medications: Active Medications Generic Name Dose Route Start Last Admin Trade Name Freq PRN Reason Stop Dose Admin Clonidine HCl 0.1 mg 06/01/18 23:40 Catapres PO Q6 PRN symptoms of withdrawal cows=5 Dicyclomine HCl 10 mg 06/02/18 00:19 Bentyl PO Q6 PRN Muscle spasm Hydroxyzine HCl 25 mg 06/01/18 23:19 Atarax PO Q6 PRN Anxiety Ibuprofen 600 mg 06/01/18 23:18 Motrin Tab PO Q6 PRN Pain, moderate (4-7) Trazodone HCl 100 mg 06/01/18 23:20 Desyrel PO HS PRN Insomnia Past Psychiatric History - Past Psychiatric History Previous Treatment History: Intensive Outpatient Pertinent Medical Hx (Current Medical&Sleep Prob, Allergies): Allergies Allergy/AdvReac Type Severity Reaction Status Date / Time No Known Allergies Allergy Verified 06/01/18 19:46 Percocet 5/325 mg Tab 06/01/18 Xanax 06/01/18 Review of Systems - Psychiatric Psychiatric: Abnormal Sleep Pattern, Anhedonia, Anxiety, Difficulty Concentrating. absent: Behavioral Changes, Confusion, Depression, Hallucinations, Homicidal Ideation, Irritability, Paranoia, Suicidal Ideation Mental Status Examination - Personal Presentation Personal Presentation: Looks older than stated age - Affect Affect: Blunted - Motor Activity Motor Activity: Calm - Reliability in Providing Information Reliability in Providing Information: Fair - Speech Speech: Organized (slowed), Relevant - Mood Mood: Anxious - Formal Thought Process Formal Thought Process: No Impairment - Cognitive Functions Orientation: Person, Place, Situation, Time Sensorium: Drowsy Attention/Concentration: Easily distracted Abstract Thinking: [place] Estimate of Intelligence: Average Judgement: Intact, as evidence by: Insight regarding need for hospitalization Memory: Recent intact, as evidence by: Ability to recall events of the day, Remote intact, as evidenced by: Abilit to recall sig. life events - Risk Risk: Withdrawal, Diminished functioning - Strength & Assets Inventory Strength & Assets Inventory: Cooperative - Limitations Limitations: Other DSM 5 DX - DSM 5 DSM 5 Diagnosis: Opioid withdrawal Benzodiazepine withdrawal Opioid use d/o--severe Benzodiazepine use d/o--severe Generalized anxiety d/o Sleep apnea - Recommended/Plan of Treatment Treatment Recommendations and Plan of Treatment: Taper with Subutex Gabapentin for augmentation if needed As needed medication All risks, benefits and alternatives of the meds discussed and the patient agreed and understood Attend groups and activities Supportive therapy and psychoeducation OK for abstinence CBT for relapse prevention Encourage MAT Refer to rehab or IOP, and self-help groups Teach healthy lifestyle methods, i.e. diet, exercise, meditation Smoking cessation with OK Nicotine patch if needed 33 min Projected ELOS: 4 days Prognosis: good w treatment
[2018-06-02] MEDS ORDERED: Aluminum Hydroxide/Magnesium Hydroxide Susp (30 mL) PO PRN (10:12)
[2018-06-02] MEDS ORDERED: Albuterol HFA 90 mcg/actuation (8 g) INH PRN (10:16)
--- NOTE | 2018-06-03 11:13 | PCM.PYCHPN ---
Psychiatric Progress Note - Psychiatric Progress Note Patient seen today, length of contact: 15 min Patient Chief Complaint: I am still withdrawing.' Problems Identified/Issues Discussed: Patient seen and evaluated, chart reviewed and discussed with the nurse. Pt reports improvement in his mood, and but still reports withdrawal symptoms, including nausea, sweating, headaches, and anxiety. Patient is compliant with medications and denies any side effects. Symptoms are improving but pt needs more time to stabilize. Support and psychoeducation given. Medication Change: Yes Medical Record Reviewed: Yes Mental Status Examination - Cognitive Function Orientation: Person, Place, Situation, Time Memory: Intact Attention: WNL Concentration: Poor Association: WNL Fund of Knowledge: Poor - Mood Mood: Anxious - Affect Affect: Blunted - Speech Speech: Soft - Formal Thought Process Formal Thought Process: No Impairment - Suicidal Ideation Suicidal Ideation: No - Homicidal Ideation Homicidal Ideation: No Goal/Treatment Plan - Goal/Treatment Plan Need for Continued Stay: Severe functional impairment Progress Toward Problem(s) and Goals/Treatment Plan: Opioid withdrawal Benzodiazepine withdrawal Opioid use d/o--severe Benzodiazepine use d/o--severe Generalized anxiety d/o Sleep apnea Taper with Subutex Gabapentin for augmentation if needed As needed medication All risks, benefits and alternatives of the meds discussed and the patient agreed and understood Attend groups and activities Supportive therapy and psychoeducation HI for abstinence CBT for relapse prevention Encourage MAT Refer to rehab or IOP, and self-help groups Teach healthy lifestyle methods, i.e. diet, exercise, meditation Smoking cessation with HI Nicotine patch if needed
[2018-06-04 11:55] VITALS: BP 143/99; PULSE 81; RESP 20; TEMP 98; O2SAT 98
--- NOTE | 2018-06-04 12:40 | PCM.PYCHDC ---
Mental Status Examination - Mental Status Examination Orientation: Person, Place, Situation, Time Memory: Intact Mood: Neutral Affect: Other (Appropriate) Speech: Appropriate Attention: WNL Concentration: WNL Association: WNL Fund of Knowledge: WNL Formal Thought Process: No Impairment Description of patient's judgement and insight: Fair Psychotic Thoughts and Behaviors: None Suicidal Ideation: No Current Homicidal Ideation?: No Discharge Summary - Discharge Note Reason for Hospitalization: Opioid use disorder severe. Cannabis use disorder severe. Alcohol use disorder Laboratory Data: Reviewed Consultations:: List each consultation separately and include: 1. Reason for request. 2. Findings. 3. Follow-up Summary of Hospital Course include:: 1. Description of specific treatment plan utilized for patients during their course of treatmen. 2. Summarize the time- course for resolution of acute symptoms and/or regressed behaviors. 3. Describe issues identified and worked on during hospitalization. 4. Describe medication utilized. 5. Describe medical problems identified and treated. 6. Reassessment of suicide risk Summary of Hospital Course: Patient is a 42-year-old single, unemployed -Gabonese male with a 19-year-old child who lives at home with a friend. 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 The patient started using heroin at the age of 18, sniffing 10 bags per day, with his last use yesterday at 3 pm. The patient states that he is prescribed Xanax as needed, and takes two 1 mg pills per day. The patient is a social drinker, drinking 2 glasses of wine about once a month. The patient denies cocaine, marijuana or other drug use but smokes 1.5 packs per day for the last 26 years. The patient has been to detox once in February 2017 but never been to rehab. The patients longest sobriety was for one year between [id number]. The patient denies any family history of alcohol or drug abuse. Past Psych History: Generalized Anxiety Disorder, still anxious Past Medical History: Sleep apnea, he looks cognitively impaired likely b/c of this; obesity Family Psych History: denies During his stay in the hospital patient was treated symptomatically but not with methadone or Subutex as patient did not develop any withdrawal symptoms even after 3 days. According to staff patient was very uncooperative and disrespecting the staff. Patient was staying in his room most of the time, was coming out of the room for food. Patient also refused to go to any place for follow-up care after discharge from the hospital. Discussed with the patient about the issue. At the time of evaluation today, still patient had no withdrawal symptoms. Patient was discharged from the hospital. At the time of evaluation and discharge, patient was calm and cooperative, had no withdrawal symptoms, awake, alert and oriented x3, had no delusions, no auditory or visual hallucinations, no suicidal ideations or homicidal ideations. Patient was discharged in stable condition. Patient refused to go to any place for follow-up care after discharge from the hospital. - Final Diagnosis (DSM 5) Condition upon Discharge: FAIR Disposition: HOME/ ROUTINE Follow-up Treatment Plan: None, patient refused. - Smoking Cessation Smoking Cessation Medication prescribed: Yes - Antipsychotic Medications Pt discharged on 2 or more routine antipsychotic medications: No
== END 2018-06-04 11:15 | disposition home or self-care (01) | DRG 745 ==
LOC: C.ER 19:44 → C.7D 22:12
PROVIDERS: ADMIT Psychiatry & Neurology Psychiatry; ATTEND Psychiatry & Neurology Psychiatry
PROC: GZ56ZZZ Individual Psychotherapy, Supportive (ICD-10-PCS; principal; 2018-06-01)
DX: F11.23 Opioid dependence with withdrawal (principal); F13.239 Sedative, hypnotic or anxiolytic dependence with withdrawal, unspecified; F17.210 Nicotine dependence, cigarettes, uncomplicated; F41.1 Generalized anxiety disorder; G47.30 Sleep apnea, unspecified; J45.909 Unspecified asthma, uncomplicated; F10.10 Alcohol abuse, uncomplicated; F12.10 Cannabis abuse, uncomplicated; E66.9 Obesity, unspecified; Z68.41 Body mass index [BMI] 40.0-44.9, adult